=== PATIENT | female | born 1980 | race African-American/Black ===

== ENCOUNTER 2017-12-31 05:04 | Emergency (ER) | payer MEDICAID, OTHER ==
[~2017-12-31] VITALS: Ht 162.6 cm; Wt 50.0 kg
[2017-12-31 05:35] VITALS: BP 113/57; PULSE 66; RESP 16; TEMP 98.2; O2SAT 97
--- NOTE | 2017-12-31 05:48 | PD ---
HPI Chief Complaint: Psychiatric Symptoms Time Seen by Provider: 05:11 Travel History International Travel<30 days: No Contact w/Intl Traveler<30days: No Traveled to known affect area: No History of Present Illness HPI 37-year-old black female presents as a transfer from [facility] for evaluation and treatment on her Alanis act. They had declined her they had declined her for allegedly having a central line/PICC line. According to the Alanis act the patient had made suicidal statements to her sister. The patient adamantly denies this. She does admit to a history of IV substance abuse. She uses IV Dilaudid. She last used Dilaudid approximately 8 hours ago according to the patient. The patient states that she does not feel well. She is not elaborating on this. She is very somnolent and has to be aroused to take a history but falls asleep readily. Patient denies any suicidal homicidal ideation. No toxic ingestions. PFSH Past Medical History Narrative Medical IV drug abuse, MRSA Medical other: Yes (MRSA) Tetanus Vaccination: Unknown Influenza Vaccination: No ?: Unknown Past Surgical History Surgical History: No Previous Surgery Social History Alcohol Use: No Tobacco Use: Yes (/2 ppd) Substance Use: Yes (iv drug use) Allergies-Medications (Allergen,Severity, Reaction): Coded Allergies: No Known Allergies (Unverified , 12/31/17) Review of Systems ROS Limitations: Poor Historian Physical Exam Narrative GENERAL: Well-nourished, well-developed patient. SKIN: Warm and dry. 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 A focused skin exam shows no obvious PICC line or central line. No signs of any secondary infections. HEAD: Normocephalic and atraumatic. EYES: No scleral icterus. No injection or drainage. ENT: No nasal drainage noted. Mucous membranes pink. Airway patent. NECK: Supple, trachea midline. Moves head freely without obvious discomfort. CARDIOVASCULAR: Regular rate and rhythm without murmurs, gallops, or rubs. No appreciable murmur RESPIRATORY: Breath sounds equal bilaterally. No accessory muscle use. GASTROINTESTINAL: Abdomen soft, non-tender, nondistended. EXTREMITIES: No cyanosis or edema. BACK: Nontender without obvious deformity. No CVA tenderness. NEURO: Patient is alert and oriented. But appears to be under the influence of medications. Patient is very somnolent. She only arouses momentarily and has slurred speech and then falls asleep readily. Data Data Last Documented VS Vital Signs Date Time Temp Pulse Resp B/P (MAP) Pulse Ox O2 Delivery O2 Flow Rate FiO2 12/31/17 05:35 98.2 66 16 113/57 (75) 97 Room Air Orders Orders Complete Blood Count With Diff (12/31/17 05:40) Comprehensive Metabolic Panel (12/31/17 05:40) Thyroid Stimulating Hormone (12/31/17 05:40) Urinalysis - C+S If Indicated (12/31/17 05:40) Ed Urine Pregnancytest Poc (12/31/17 05:40) Psych Screen (12/31/17 05:40) Drug Screen, Random Urine (12/31/17 05:40) Alcohol (Ethanol) (12/31/17 05:40) Labs Laboratory Tests Test 12/31/17 05:43 White Blood Count 7.4 TH/MM3 Red Blood Count 4.61 MIL/MM3 Hemoglobin 11.9 GM/DL Hematocrit 35.7 % Mean Corpuscular Volume 77.5 FL Mean Corpuscular Hemoglobin 25.7 PG Mean Corpuscular Hemoglobin Concent 33.2 % Red Cell Distribution Width 17.6 % Platelet Count 259 TH/MM3 Mean Platelet Volume 7.8 FL Neutrophils (%) (Auto) 52.2 % Lymphocytes (%) (Auto) 38.0 % Monocytes (%) (Auto) 8.1 % Eosinophils (%) (Auto) 1.5 % Basophils (%) (Auto) 0.2 % Neutrophils # (Auto) 3.9 TH/MM3 Lymphocytes # (Auto) 2.8 TH/MM3 Monocytes # (Auto) 0.6 TH/MM3 Eosinophils # (Auto) 0.1 TH/MM3 Basophils # (Auto) 0.0 TH/MM3 CBC Comment DIFF FINAL Differential Comment Urine Color YELLOW Urine Turbidity CLEAR Urine pH 5.5 Urine Specific [place] 1.026 Urine Protein TRACE mg/dL Urine Glucose (UA) NEG mg/dL Urine Ketones NEG mg/dL Urine Occult Blood NEG Urine Nitrite NEG Urine Bilirubin NEG Urine Urobilinogen 2.0 MG/DL Urine Leukocyte Esterase NEG Urine RBC 1 /hpf Urine WBC 2 /hpf Urine Squamous Epithelial Cells 1 /hpf Urine Mucus MANY /lpf Microscopic Urinalysis Comment CULT NOT INDICATED Blood Urea Nitrogen 9 MG/DL Creatinine 0.80 MG/DL Random Glucose 113 MG/DL Total Protein 8.8 GM/DL Albumin 3.1 GM/DL Calcium Level 8.6 MG/DL Alkaline Phosphatase 75 U/L Aspartate Amino Transf (AST/SGOT) 12 U/L Alanine Aminotransferase (ALT/SGPT) 18 U/L Total Bilirubin 0.2 MG/DL Sodium Level 139 MEQ/L Potassium Level 3.4 MEQ/L Chloride Level 103 MEQ/L Carbon Dioxide Level 29.5 MEQ/L Anion Gap 7 MEQ/L Estimat Glomerular Filtration Rate 82 ML/MIN Thyroid Stimulating Hormone 3rd Gen 0.173 uIU/ML Urine Opiates Screen POS Urine Barbiturates Screen NEG Urine Amphetamines Screen NEG Urine Benzodiazepines Screen NEG Urine Cocaine Screen POS Urine Cannabinoids Screen NEG Ethyl Alcohol Level LESS THAN 3 MG/DL MDM Medical Decision Making Medical Screen Exam Complete: Yes Emergency Medical Condition: Yes Medical Record Reviewed: Yes Interpretation(s) Laboratory Tests Test 12/31/17 05:43 White Blood Count 7.4 TH/MM3 Red Blood Count 4.61 MIL/MM3 Hemoglobin 11.9 GM/DL Hematocrit 35.7 % Mean Corpuscular Volume 77.5 FL Mean Corpuscular Hemoglobin 25.7 PG Mean Corpuscular Hemoglobin Concent 33.2 % Red Cell Distribution Width 17.6 % Platelet Count 259 TH/MM3 Mean Platelet Volume 7.8 FL Neutrophils (%) (Auto) 52.2 % Lymphocytes (%) (Auto) 38.0 % Monocytes (%) (Auto) 8.1 % Eosinophils (%) (Auto) 1.5 % Basophils (%) (Auto) 0.2 % Neutrophils # (Auto) 3.9 TH/MM3 Lymphocytes # (Auto) 2.8 TH/MM3 Monocytes # (Auto) 0.6 TH/MM3 Eosinophils # (Auto) 0.1 TH/MM3 Basophils # (Auto) 0.0 TH/MM3 CBC Comment DIFF FINAL Differential Comment Urine Color YELLOW Urine Turbidity CLEAR Urine pH 5.5 Urine Specific [place] 1.026 Urine Protein TRACE mg/dL Urine Glucose (UA) NEG mg/dL Urine Ketones NEG mg/dL Urine Occult Blood NEG Urine Nitrite NEG Urine Bilirubin NEG Urine Urobilinogen 2.0 MG/DL Urine Leukocyte Esterase NEG Urine RBC 1 /hpf Urine WBC 2 /hpf Urine Squamous Epithelial Cells 1 /hpf Urine Mucus MANY /lpf Microscopic Urinalysis Comment CULT NOT INDICATED Blood Urea Nitrogen 9 MG/DL Creatinine 0.80 MG/DL Random Glucose 113 MG/DL Total Protein 8.8 GM/DL Albumin 3.1 GM/DL Calcium Level 8.6 MG/DL Alkaline Phosphatase 75 U/L Aspartate Amino Transf (AST/SGOT) 12 U/L Alanine Aminotransferase (ALT/SGPT) 18 U/L Total Bilirubin 0.2 MG/DL Sodium Level 139 MEQ/L Potassium Level 3.4 MEQ/L Chloride Level 103 MEQ/L Carbon Dioxide Level 29.5 MEQ/L Anion Gap 7 MEQ/L Estimat Glomerular Filtration Rate 82 ML/MIN Thyroid Stimulating Hormone 3rd Gen 0.173 uIU/ML Urine Opiates Screen POS Urine Barbiturates Screen NEG Urine Amphetamines Screen NEG Urine Benzodiazepines Screen NEG Urine Cocaine Screen POS Urine Cannabinoids Screen NEG Ethyl Alcohol Level LESS THAN 3 MG/DL Differential Diagnosis MDM: High Differential diagnoses: Schizophrenia, schizoaffective disorder, bipolar, anxiety, depression, adjustment reaction, mood disorder NOS, ODD, depressive disorder NOS, dementia, dementia with agitation, psychosis NOS, substance induced mood disorder, DMDD, Asperger syndrome, infection,electrolyte abnormality, malingering. Narrative Course Mental health screening discussed with the patient. Psychiatric screen ordered. The patient has been medically cleared. This is medical clearance for psychiatric admission, IV drug abuse Diagnosis Primary Impression: Medical clearance for psychiatric admission Additional Impression: IV drug abuse Condition: Stable Carlos Burleson Dec 31, 2017 05:48
[2017-12-31 06:03] LABS: AUTOMATED NEUTROPHIL # 3.9 TH/MM3 (1.8-7.7); BASOPHIL % 0.2 % (0.0-2.0); EOSINOPHIL # 0.1 TH/MM3 (0-0.4); EOSINOPHIL % 1.5 % (0.0-4.0); HEMATOCRIT 35.7 % (35.0-46.0); HEMOGLOBIN 11.9 GM/DL (11.6-15.3); LYMPHOCYTE # 2.8 TH/MM3 (1.0-4.8); MEAN CELL VOLUME 77.5 FL (80.0-100.0); MEAN CORPUSCULAR HEMOGLOBIN 25.7 PG (27.0-34.0); MEAN CORPUSCULAR HGB CONC 33.2 % (32.0-36.0); MEAN PLATELET VOLUME 7.8 FL (7.0-11.0); MONO % 8.1 % (0.0-8.0); MONOCYTE # 0.6 TH/MM3 (0-0.9); NEUT % 52.2 % (16.0-70.0); PLATELET COUNT 259 TH/MM3 (150-450); RED BLOOD COUNT 4.61 MIL/MM3 (4.00-5.30); RED CELL DISTRIBUTION WIDTH 17.6 % (11.6-17.2); WHITE BLOOD COUNT 7.4 TH/MM3 (4.0-11.0)
[2017-12-31 06:22] LABS: ALBUMIN 3.1 GM/DL (3.4-5.0); ALT (GPT) 18 U/L (10-53); AST (GOT) 12 U/L (15-37); BICARBONATE 29.5 MEQ/L (21.0-32.0); BLOOD UREA NITROGEN 9 MG/DL (7-18); CALCIUM 8.6 MG/DL (8.5-10.1); CHLORIDE 103 MEQ/L (98-107); GLOMERULAR FILTRATION RATE 82 ML/MIN (>89); GLUCOSE,RANDOM 113 MG/DL (74-106); SODIUM (NA) 139 MEQ/L (136-145)
[2017-12-31 06:31] LABS: BILIRUBIN, URINE NEG (NEG); BLOOD, URINE NEG (NEG); GLUCOSE,URINE NEG (NEG); KETONE, URINE NEG (NEG); MUCUS URINE MANY /lpf (OCC); NITRITE,URINE NEG (NEG); PH, URINE 5.5 (5.0-8.5); SQUAMOUS EPITHELIAL CELL URINE 1 /hpf (0-5); URINE COLOR YELLOW (YELLW/STRAW); URINE LEUKOCYTE ESTERASE NEG (NEG)
[2017-12-31 06:33] LABS: ALKALINE PHOSPHATASE 75 U/L (45-117); TOTAL BILIRUBIN ADULT 0.2 MG/DL (0.2-1.0); TOTAL PROTEIN 8.8 GM/DL (6.4-8.2)
[2017-12-31 07:40] VITALS: BP 120/60; PULSE 64; RESP 16; O2SAT 98
[2018-01-01 02:20] VITALS: BP 100/60; PULSE 68; RESP 18; O2SAT 99
[2018-01-01 06:50] VITALS: RESP 18
[2018-01-01 10:11] VITALS: BP 119/65; PULSE 90; RESP 16; O2SAT 100
--- NOTE | 2018-01-01 11:38 | PD ---
Physical Exam Time Seen by Provider: 11:[address] Gonsalves has evaluated the patient, lifted very cracked and cleared patient for discharge. Data Data Last Documented VS Vital Signs Date Time Temp Pulse Resp B/P (MAP) Pulse Ox O2 Delivery O2 Flow Rate FiO2 01/01/18 10:11 90 16 119/65 (83) 100 Room Air 12/31/17 05:35 98.2 Orders Orders Complete Blood Count With Diff (12/31/17 05:40) Comprehensive Metabolic Panel (12/31/17 05:40) Thyroid Stimulating Hormone (12/31/17 05:40) Urinalysis - C+S If Indicated (12/31/17 05:40) Ed Urine Pregnancytest Poc (12/31/17 05:40) Psych Screen (12/31/17 05:40) Drug Screen, Random Urine (12/31/17 05:40) Alcohol (Ethanol) (12/31/17 05:40) Diet Regular Basic (12/31/17 Breakfast) Diet Regular Basic (01/01/18 Breakfast) Diet Regular Basic (01/01/18 Lunch) Labs Laboratory Tests Test 12/31/17 05:43 White Blood Count 7.4 TH/MM3 Red Blood Count 4.61 MIL/MM3 Hemoglobin 11.9 GM/DL Hematocrit 35.7 % Mean Corpuscular Volume 77.5 FL Mean Corpuscular Hemoglobin 25.7 PG Mean Corpuscular Hemoglobin Concent 33.2 % Red Cell Distribution Width 17.6 % Platelet Count 259 TH/MM3 Mean Platelet Volume 7.8 FL Neutrophils (%) (Auto) 52.2 % Lymphocytes (%) (Auto) 38.0 % Monocytes (%) (Auto) 8.1 % Eosinophils (%) (Auto) 1.5 % Basophils (%) (Auto) 0.2 % Neutrophils # (Auto) 3.9 TH/MM3 Lymphocytes # (Auto) 2.8 TH/MM3 Monocytes # (Auto) 0.6 TH/MM3 Eosinophils # (Auto) 0.1 TH/MM3 Basophils # (Auto) 0.0 TH/MM3 CBC Comment DIFF FINAL Differential Comment Urine Color YELLOW Urine Turbidity CLEAR Urine pH 5.5 Urine Specific [place] 1.026 Urine Protein TRACE mg/dL Urine Glucose (UA) NEG mg/dL Urine Ketones NEG mg/dL Urine Occult Blood NEG Urine Nitrite NEG Urine Bilirubin NEG Urine Urobilinogen 2.0 MG/DL Urine Leukocyte Esterase NEG Urine RBC 1 /hpf Urine WBC 2 /hpf Urine Squamous Epithelial Cells 1 /hpf Urine Mucus MANY /lpf Microscopic Urinalysis Comment CULT NOT INDICATED Blood Urea Nitrogen 9 MG/DL Creatinine 0.80 MG/DL Random Glucose 113 MG/DL Total Protein 8.8 GM/DL Albumin 3.1 GM/DL Calcium Level 8.6 MG/DL Alkaline Phosphatase 75 U/L Aspartate Amino Transf (AST/SGOT) 12 U/L Alanine Aminotransferase (ALT/SGPT) 18 U/L Total Bilirubin 0.2 MG/DL Sodium Level 139 MEQ/L Potassium Level 3.4 MEQ/L Chloride Level 103 MEQ/L Carbon Dioxide Level 29.5 MEQ/L Anion Gap 7 MEQ/L Estimat Glomerular Filtration Rate 82 ML/MIN Thyroid Stimulating Hormone 3rd Gen 0.173 uIU/ML Urine Opiates Screen POS Urine Barbiturates Screen NEG Urine Amphetamines Screen NEG Urine Benzodiazepines Screen NEG Urine Cocaine Screen POS Urine Cannabinoids Screen NEG Ethyl Alcohol Level LESS THAN 3 MG/DL MDM Supervised Visit with JEROME: No Narrative Course Dr. Gonsalves has evaluated the patient, lifted very cracked and cleared patient for discharge. Patient contracts safety. Denies suicidal or homicidal ideations. Patient will be provided community resource packet to / [facility] for follow-up. Has friends and family for support. Patient was medically cleared by alternate provider prior to psych screening. Patient has been evaluated by psychiatry and and is now cleared for discharge. Diagnosis Primary Impression: IV drug abuse Referrals: [facility] (Out patient) [facility] Primary Care Physician Psychiatrist [facility] Patient Instructions: General Instructions, Polysubstance Abuse (ED) Additional Instruction: Contract safety to your self and others Stop using drugs Follow-up with psychiatry Follow-up with primary care provider Follow-up with Dhruv Montejo Return to the emergency department immediately with worsening of symptoms Med/Other Pt SpecificInfo: No Change to Meds, No Meds Exist/No RX given Disposition: 01 DISCHARGE HOME Condition: Stable Lillian Sullivan Jan 01, 2018 11:38
--- NOTE | 2018-01-01 14:48 | PD.PSY.CON ---
Provisional Diagnosis Admission Date [place] I. Substance induced psychosis, opiates and cocaine use disorder [place] II. Deferred [place] III. Hepatitis C History of Present Illness Service Psychiatry Consult Requested By Psychiatry Reason for Consult Alanis act Primary Care Physician Unknown HPI Late entry. Patient was seen this morning and 9:40 AM. The patient is a 37-year-old woman, domiciled with her mother in [place], but , unemployed, without a previous psychiatric history, no previous psychiatric hospitalizations, no previous suicidal attempts , she has history of cocaine and opiate use disorder, IV drug user, medical history of hepatitis C, who presents as a transfer from [facility] for evaluation and treatment on her Alanis act. They had declined her they had declined her for allegedly having a central line/PICC line. According to the Alanis act the patient had made suicidal statements to her sister. The patient adamantly denies this. She does admit to a history of IV substance abuse. She uses IV Dilaudid. She last used Dilaudid approximately 8 hours ago according to the patient. The patient states that she does not feel well. She is not elaborating on this. She is very somnolent and has to be aroused to take a history but falls asleep readily. Patient denies any suicidal homicidal ideation. No toxic ingestions. Patient was seen today for psychiatric evaluation in the ER. Chart was reviewed. Case discussed with staff, on the evaluation the patient is calm, cooperative, she reported that she was looking treatment for detox and rehabilitation. She denies suicidal and homicidal ideation, she denies visual and auditory hallucinations. She says that in the last days she has been "crazy"due to the use of "a lot of drugs". But, at this moment is logical, coherent and relevant, oriented 3. The use of cocaine and heroine. Past Family Social History Coded Allergies: No Known Allergies (Unverified , 12/31/17) Family Psych History No family psychiatric history Social History Patient was born and raised in [place], she lives in [place] with her mother, she is but her is in long-term, she is unemployed, her highest level of education is some college Patient's Strengths (min. 2) Verbal communication Physical Exam Vital Signs Vital Signs Date Time Temp Pulse Resp B/P (MAP) Pulse Ox O2 Delivery O2 Flow Rate FiO2 01/01/18 12:06 01/01/18 10:11 90 16 100 Room Air 12/31/17 05:35 98.2 Assessment & Plan Problem List: (1) Substance-induced psychotic disorder ICD Codes: F19.959 - Other psychoactive substance use, unspecified with psychoactive substance-induced psychotic disorder, unspecified Assessment & Plan: On psychiatric evaluation today the patient does not present any evidence of acute symptomatology of depression, anxiety, lazaro or psychosis. The patient denies suicidal and homicidal ideation, she denies visual and auditory hallucinations. The patient has an extensive history of use of heroine and cocaine, she is an IV drug user. Patient is motivated to be transferred to detox in [facility], she does not meet criteria for involuntary psychiatric admission at this moment. Alanis act will be lifted. Assessment & Plan Estimated LOS: Nitish Pham MD Jan 01, 2018 14:48
== END 2018-01-01 12:13 | disposition home or self-care (01) ==
LOC: NEPD 05:04 → NEPJ 01-01 12:13
DX: F19.10 Other psychoactive substance abuse, uncomplicated (principal); F17.200 Nicotine dependence, unspecified, uncomplicated
CPT/HCPCS: 80053; 80307; 81001; 84443; 84703; 85025; 99284